=== PATIENT | female | born 1990 | race Caucasian/White ===

== ENCOUNTER 2017-12-08 20:28 | Emergency (ER) | payer OTHER ==
[~2017-12-08] VITALS: Ht 160 cm; Wt 51.5 kg
[~2017-12-08 20:28] MED LIST: FLOXIN OTIC SOLN5 ML BOTH EARS; JUNEL1 EACH PO; NAPROSYN500 MG PO; PEN-VEE K,VEET500 MG PO; PROZAC40 MG PO; STERAPRED 5 MG U5 MG PO; TYLENOL EXTRA500 MG PO; ZOFRAN ODT4 MG PO; ZOFRAN4 MG PO
[2017-12-08 21:14] LABS: HEMATOCRIT 38.8 % (36.0-46.0); HEMOGLOBIN 13.6 G/DL (11.9-15.5); MCH 31.4 PG (29.0-34.0); MCHC 35.1 G/DL (30.0-36.0); MCV 89.6 FL (83-99); PLATELET COUNT 240 K/uL (156-360); RBC DIS.WIDTH-SD 39.4 % (39-53); RED BLOOD COUNT 4.33 M/uL (3.80-5.20); WHITE BLOOD COUNT 14.4 K/uL (4.1-10.2)
[2017-12-08 21:25] LABS: CHLORIDE 105 mEq/L (99-109); POTASSIUM 4.3 mEq/L (3.7-5.4); SODIUM 137 mEq/L (136-147)
[2017-12-08 21:27] LABS: GLUCOSE 119 mg/dL (70-99)
[2017-12-08 21:31] LABS: CREATININE 0.9 mg/dL (0.6-1.3); GFR ESTIMATE (CALCULATED) > 59 mL/min/
[2017-12-08 21:32] LABS: UREA NITROGEN (BUN) 10 mg/dL (9-23)
[2017-12-08 21:39] LABS: QUANTITATIVE HCG < 4.0 MIU/ML
[2017-12-08 23:22] LABS: APPEARANCE CLEAR ((CLEAR)); BILIRUBIN NEGATIVE; BLOOD MODERATE; COLOR YELLOW ((YELLOW)); GLUCOSE (STRIP) NEGATIVE; KETONES 20; LEUKOCYTES NEGATIVE; NITRITE NEGATIVE; PROTEIN (STRIP) NEGATIVE; SPECIFIC GRAVITY 1.028 (1.000-1.030); UROBILINOGEN 0.2 MG/DL (0.2-1.0)
[2017-12-08 23:24] LABS: BACTERIA NONE SEEN /HPF; EPITHELIAL CELLS RARE /HPF; MUCUS TRACE /LPF; RED BLOOD CELLS 30-40 /HPF (0-5); UCUL ADDED? NO; WHITE BLOOD CELLS 0-5 /HPF (0-5)
[2017-12-09] MEDS ORDERED: ZOFRAN4 MG PO (00:16)
[2017-12-09] MEDS ORDERED: TYLENOL WITH C1 EACH PO (00:16)
[2017-12-09 00:21] LABS: SOURCE URINE
[2017-12-09 00:29] VITALS: BP 115/73
[2017-12-09 13:46] LABS: CHLAMYDIA TRACHOMATIS NEGATIVE; NEISSERIA GONORRHOEAE NEGATIVE
== END 2017-12-09 00:31 | disposition home or self-care (01) ==
LOC: EME 20:28 → RME 20:28
PROVIDERS: Physician Assistant
DX: N94.6 Dysmenorrhea, unspecified (principal); R11.10 Vomiting, unspecified; F32.9 Major depressive disorder, single episode, unspecified; Z88.5 Allergy status to narcotic agent
CPT/HCPCS: 74177; 80048; 81003; 84702; 85027; 87491; 87591; 99281; 99285; J1885; J7030